=== PATIENT | female | born 1990 | race Caucasian/White ===

== ENCOUNTER 2016-04-21 22:34 | Inpatient (IN) | payer BC ==
[~2016-04-21] VITALS: Ht 165.1 cm; Wt 96.9 kg
[2016-04-21 22:49] VITALS: BP 117/72; PULSE 90; RESP 18; Ht 165.1 cm; Wt 96.9 kg
[2016-04-21] MEDS ORDERED: PREN1TAB17 PO (22:52)
[2016-04-21] MEDS ORDERED: FERR325C PO (22:53)
--- NOTE | 2016-04-22 00:53 | RADRPT ---
PROCEDURE: US OB biophysical profile. CLINICAL INDICATION: Vaginal bleeding TECHNIQUE: Multiple sonographic images of the pelvis were obtained. The images were reviewed on a PACS workstation. COMPARISON: No pertinent prior examinations were submitted for comparison. FINDINGS: There is a single viable intrauterine gestation. Cardiac activity is present with 154 beats per min heriberto. There is a vertex presentation. The placenta is fundal and grade II in appearance. There is a normal amount of amniotic fluid with an ISMA = 10.7 cm. Biophysical profile: movement 2/2 tone 2/2. breathing 2/2 ISMA 2/2 Total 09/29 IMPRESSION: Normal biophysical profile. RPTAT: HIKT . .Cosme Ling MD, MD Date Time Electronically viewed and signed by .Cosme Ling MD, on 04/22/2016 00:52 .T/
[2016-04-22] MEDS ORDERED: OXYTOCIN 30 UNITS/LR 500 ML IV PRN (02:30)
[2016-04-22] MEDS ORDERED: CARBOPROST 250 MCG INJ IM PRN (02:30)
[2016-04-22] MEDS ORDERED: CEFAZOLIN 2 GM/50 ML (PMX) 50 ML IV SCH (02:30)
[2016-04-22] MEDS ORDERED: OXYTOCIN 30 UNITS/LR 500 ML IV SCH (02:30)
[2016-04-22] MEDS ORDERED: MISOPROSTOL 200 MCG TAB PR PRN (02:30)
[2016-04-22] MEDS ORDERED: METHYLERGONOVINE 0.2 MG INJ IM PRN (02:30)
--- NOTE | 2016-04-22 03:01 | TRIAGE ---
OB Triage Datetime Report Generated by CPN: 04/22/2016 03:01 Datetime: 04/22/2016 02:22 Assessment Type: Admission Assessment Vaginal Bleeding: None Maternal Assessment Level of Consciousness: Fully Conscious DTR's/Clonus: DTRs 2+; No Clonus Headache: Denies Blurred Vision: No Respiratory Effort: Unlabored; Regular Rhythm; Equal Expansion Breath Sounds, Left: Clear and Equal Breath Sounds, Right: Clear and Equal Nausea/Vomiting: Denies RUQ Epigastric Pain: Denies Lower Extremities Edema: None Degree: None Upper Extremities Edema: None Facial Edema: None Fall Risk Assessment History of Falling: (0) No Secondary Diagnosis: (0) No Ambulatory Aid: (0) Bedrest/Nurse Assist IV Therapy: (0) No Gait: (0) Normal/Bedrest/Immobile Mental Status: (0) Oriented to Own Ability Fall Score: 0 Fall Risk Score Definition: No Risk: No action required Labor Evaluation Frequency: occasional Duration (sec)2399: 50-70 Quality: Mild Pattern: Normal: <= 5 Contractions in 10 Minutes Heart Rate FHR Baseline Rate: 135 Variability: Moderate 6-25 bpm Accelerations: 15X15 Decelerations: None Category: Category I Pain Assessment Pain Scale: 4 Pain Presence: Intermittent Pain Type: Cramping; Contraction Pain Location: Abdomen; Back Membrane Status: Intact Datetime: 04/22/2016 01:00 Labor Evaluation Frequency: irregular Monitor Mode: External Duration (sec)2399: 40-60 Quality: Mild Pattern: Normal: <= 5 Contractions in 10 Minutes Resting Tone [place]: Relaxed Heart Rate FHR Baseline Rate: 135 Monitor Mode: External US Variability: Moderate 6-25 bpm Accelerations: 15X15 Decelerations: None Category: Category I Datetime: 04/22/2016 00:30 Labor Evaluation Frequency: 2-9 Labor Evaluation Frequency: 2-6 Monitor Mode: External Duration (sec)2399: 40-70 Duration (sec)2399: 40-60 Quality: Mild Pattern: Normal: <= 5 Contractions in 10 Minutes Resting Tone [place]: Relaxed Heart Rate FHR Baseline Rate: 135 Heart Rate FHR Baseline Rate: 140 Monitor Mode: External US Variability: Moderate 6-25 bpm Accelerations: 15X15 Decelerations: None Category: Category I Datetime: 04/21/2016 23:34 Vaginal Exam Dilatation (cms): 1.5 Effacement (%): 50 Station: -2 Exam By: [email or web address] Vaginal Bleeding: Small Cervix, Consistency: Soft Cervix, Position: Midposition Datetime: 04/21/2016 23:30 Monitor Mode: External Quality: Mild Pattern: Normal: <= 5 Contractions in 10 Minutes Resting Tone [place]: Relaxed Heart Rate FHR Baseline Rate: 130 Monitor Mode: External US Variability: Moderate 6-25 bpm Accelerations: 15X15 Decelerations: None Category: Category I Datetime: 04/21/2016 23:18 Time of Arrival: 04/21/2016 22:26 EGA: 37.4 Arrived By: Wheelchair Arrived From: Home Chief Complaint: vaginal bleeding, abdominal cramping Movement: Present Contractions: Irregular Rupture of Membranes: Denies Vaginal Bleeding: Small Vaginal Discharge: Denies Recent Sexual Intercouse: Denies Abdominal Trauma: Not Applicable Patient Complaints: Cramping Time Provider Notified: 04/21/2016 23:14 Provider Notified: Eshaghian Initial Plan: CEFM, BPP Datetime: 04/21/2016 22:46 Pain Assessment Pain Scale: 4 Pain Presence: Intermittent Pain Type: Cramping Pain Location: Abdomen Datetime: 04/21/2016 22:41 Assessment Type: Triage Maternal Assessment Level of Consciousness: Fully Conscious DTR's/Clonus: DTRs 2+; No Clonus Headache: Denies Blurred Vision: No Respiratory Effort: Unlabored; Regular Rhythm; Equal Expansion Breath Sounds, Left: Clear and Equal Breath Sounds, Right: Clear and Equal Nausea/Vomiting: Denies RUQ Epigastric Pain: Denies Lower Extremities Edema: None Degree: None Upper Extremities Edema: None Degree: None Facial Edema: None Fall Risk Assessment History of Falling: (0) No Secondary Diagnosis: (0) No Ambulatory Aid: (0) Bedrest/Nurse Assist IV Therapy: (0) No Gait: (0) Normal/Bedrest/Immobile Mental Status: (0) Oriented to Own Ability Fall Score: 0 Fall Risk Score Definition: No Risk: No action required
[2016-04-22 03:04] LABS: ADD SCAN DIFF NO
[2016-04-22 03:06] LABS: BASOPHILS % 0.4 % (0.0-2.0); EOSINOPHILS # 0.1 10^3/ul (0.0-0.5); EOSINOPHILS % 0.8 % (0.0-7.0); HEMATOCRIT 31.7 % (37.0-47.0); HEMOGLOBIN 10.1 g/dl (12.0-16.0); LYMPHOCYTES # 1.9 10^3/ul (0.8-2.9); MEAN CORPUSCULAR HEMOGLOBIN 27.4 pg (29.0-33.0); MEAN CORPUSCULAR HGB CONC 31.9 g/dl (32.0-37.0); MEAN CORPUSCULAR VOLUME 85.9 fl (82.0-101.0); MEAN PLATELET VOLUME 10.7 fl (7.4-10.4); MONOCYTE # 0.5 10^3/ul (0.3-0.9); MONOCYTES % 6.6 % (0.0-11.0); NEUTROPHIL # 5.1 10^3/ul (1.6-7.5); NEUTROPHILS % 65.9 % (39.0-77.0); PLATELET COUNT 264 10^3/UL (140-415); RED BLOOD COUNT 3.69 10^6/ul (4.20-5.40); RED CELL DISTRIBUTION WIDTH 13.9 % (11.5-14.5); WHITE BLOOD COUNT 7.7 10^3/ul (4.8-10.8)
[2016-04-22 03:16] LABS: INR 0.99; PROTIME 13.1 Sec (12.2-14.2)
[2016-04-22] MEDS: LACTATED RINGER'S 1,000 ML IV SCH ×2 (03:17→10:25)
[2016-04-22 05:29] LABS: BARBITURATES Negative (NEGATIVE); BENZODIAZEPINES Negative (NEGATIVE)
[2016-04-22 05:45] LABS: CANNABINOIDS Negative (NEGATIVE); COCAINE Negative (NEGATIVE); OPIATES Negative (NEGATIVE)
[2016-04-22] MEDS ORDERED: KETOROLAC 30 MG INJ ONE (12:41)
[2016-04-22] MEDS ORDERED: morphine SULFATE/PF (10 MG/10 ML) INJ ONE (12:41)
[2016-04-22] MEDS ORDERED: ONDANSETRON 4 MG INJ ONE (12:41)
--- NOTE | 2016-04-23 07:22 | HP ---
DATE OF ADMISSION: 04/22/2016 HISTORY OF PRESENT ILLNESS: Ms. Daylin Cuellar is a 25-year-old, 3, para 1, EDC 05/08/2016, i ntrauterine at 37 weeks and 5 days gestational age, presented to the triage last nigh t for contractions. She was started on IV hydration. Currently, her contractions have resolved and there is currently no cervical change. The patient denies any current vaginal bleeding or discharg e. Her care took place at [facility]. PAST MEDICAL HISTORY: None. MEDICATIONS: vitamins. PAST SURGICAL HISTORY: x1 . OBSTETRIC HISTORY: x1 previous . GYNECOLOGIC HISTORY: 12, regular, 3 to 4 days. Denies any sexually transmitted diseases. Sexually active with 1 partner. SOCIAL HISTORY: Positive for marijuana; however, patient denies any smoking or alcohol. FAMILY HISTORY: None. PHYSICAL EXAMINATION: HEENT: Within normal. LUNGS: CTA bilateral. CARDIOVASCULAR: S1, S2, regular rhythm. ABDOMEN: Gravid, nontender. EXTREMITIES: Negative edema. No calf tenderness. PELVIC: Vaginal exam 150, -2. No vaginal discharge/bleeding. heart tracing category 1. Jason ometer no contractions. ASSESSMENT: A 25-year-old, 3, para 1, intrauterine at 37 weeks and 4 days g estational age. No cervical change, not in labor, undelivered. PLAN: Discharge home today with strict labor precautions and kick count. The patient is sche duled for an elective repeat delivery on 05/01/2016. Dictated By: JACKLYN FLORES/YOLY Conf#: [id number] DID#: [id number]
== END 2016-04-22 12:49 | disposition home or self-care (01) | DRG 780 ==
LOC: OBT 22:34 → L-D 22:37 → OBT 04-22 01:13
PROVIDERS: ADMIT Obstetrics & Gynecology; ATTEND Obstetrics & Gynecology
DX: O47.1 False labor at or after 37 completed weeks of gestation (principal); Z3A.37 37 weeks gestation of pregnancy
CPT/HCPCS: 76818; 80307; 85025; 85610; 85730; 86592; 86850; 86900; 86901; G0463; J0690; J1885; J2274; J2405; J2590; J7120

== ENCOUNTER 2016-04-24 11:05 | Outpatient (CLI) | payer BC ==
[~2016-04-24] VITALS: Ht 165.1 cm; Wt 96.8 kg
[~2016-04-24 11:05] MED LIST: FERR325C PO; PREN1TAB17 PO
[2016-04-24 11:25] VITALS: Ht 165.1 cm; Wt 96.8 kg
[2016-04-24 11:31] VITALS: BP 116/75; PULSE 104; RESP 18
[2016-04-24] MEDS ORDERED: ACETAMINOPHEN 500 MG TAB PO STA (12:13)
[2016-04-24] MEDS ORDERED: PROCHLORPERAZINE 10 MG TAB PO ONE (12:30)
[2016-04-24 12:32] LABS: POTASSIUM 4.2 mmol/L (3.5-5.1)
[2016-04-24 12:34] LABS: CREATININE 0.48 mg/dl (0.44-1.00)
[2016-04-24 12:35] LABS: ALBUMIN/GLOBULIN RATIO 0.93; CALCIUM 8.4 mg/dl (8.4-10.2); TOTAL PROTEIN 6.2 g/dl (6.1-8.1)
--- NOTE | 2016-04-24 12:42 | RADRPT ---
PROCEDURE: OB ultrasound for biophysical profile CLINICAL INDICATION: Hypertension TECHNIQUE: Multiple sonographic images of the pelvis were obtained. Transabdominal views of the g ravid uterus are available for review. The images were reviewed on a PACS workstation. COMPARISON: None FINDINGS: breathing movement = 2/2 tone = 2/2 motion = 2/2 ISMA = 2/2 ISMA = 13.3 cm Single live intrauterine with cardiac activity of 168 bpm. position is breech . The placenta is fundal. IMPRESSION: 1. Single live intrauterine gestation. 2. Biophysical profile = 8/8. 3. ISMA = 13.3 cm. RPTAT: HH .Edna Garsia MD, MD Date Time Electronically viewed and signed by .Edna Garsia MD, on 04/24/2016 12:42 .G/
--- NOTE | 2016-04-24 13:23 | HP ---
Date/Time of Note Date/Time of Note DATE: 04/24/16 TIME: 13:14 OB - History Hx of Present Free Text/Dictation OB Triage Pt is a 25yo at 38+0 with hx of C/S x1 presenting from clinic 2/2 elevated BP 152/92. Pt states her BPs have been elevated, although not as high as today, on several visits. She also c/o a severe GARZA which is not new. She has had similar headaches throughout her life and her . She has been taking 3 Extra Strength Tylenol without relief. Last took meds yesterday. Denies photophobia, phonophobia, visual changes, RUQ pain, UCs, LOF or VB. Things her mucous plug is slowly coming out. Reports normal FM. PROCEDURE: OB ultrasound for biophysical profile CLINICAL INDICATION: Hypertension TECHNIQUE: Multiple sonographic images of the pelvis were obtained. Transabdominal views of the gravid uterus are available for review. The images were reviewed on a PACS workstation. COMPARISON: None FINDINGS: breathing movement = 2/2 tone = 2/2 motion = 2/2 ISMA = 2/2 ISMA = 13.3 cm Single live intrauterine with cardiac activity of 168 bpm. position is breech. The placenta is fundal. IMPRESSION: 1. Single live intrauterine gestation. 2. Biophysical profile = 8/8. 3. ISMA = 13.3 cm. Estimated Due Date: May 08, 2016 Care: Good Care OB Admission Exam Vital Signs Vital Signs Vital Signs Date Time Temp Pulse Resp B/P Pulse Ox O2 Delivery O2 Flow Rate FiO2 04/24/16 11:31 98.0 104 18 116/75 Room Air 111/74 Physical Exam Extremities: Edema (trace bilateral LE ) Reflexes: Normal Heart Rate: 130's Accelerations: Accelerations Present Decelerations: No Decelerations Varibility: Moderate Contractions on Admission: None Last 72 hours Lab Results CBC & BMP 04/24/16 12:00 Liver Function Test 04/24/16 12:00 Alanine Aminotransferase (ALT/SGPT) 20 Albumin 3.0 L Alkaline Phosphatase 148 H Aspartate Amino Transf (AST/SGOT) 13 L Direct Bilirubin 0.00 Total Protein 6.2 OB Assessment/Plan Other Assessment: Elevated BPs in clinic at term w/o e/o PreEclampsia Headache Reassuring FWB Other plan: Pt with normal BPs in triage, normal labs and no proteinuria GARZA resolved with Tylenol 1000mg and Compazine 10mg IM Recommend pt complete a 24hr urine collection, return in 2d to triage with urine and for repeat BP check PreE precautions reviewed as well as ROM and FKC Questions answered to patient's satisfaction ENRIKE MARTINEZ MD Apr 24, 2016 13:23
[2016-04-24 13:24] LABS: ADD UMIC YES; URINE BILIRUBIN (Dip) NEGATIVE (NEGATIVE); URINE BLOOD (Dip) 3+ (NEGATIVE); URINE COLOR LT. YELLOW (YELLOW); URINE GLUCOSE (Dip) NEGATIVE (NEGATIVE); URINE KETONES (Dip) NEGATIVE (NEGATIVE); URINE LEUKOCYTE ESTERASE (Dip) 2+ (NEGATIVE); URINE NITRITE (Dip) NEGATIVE (NEGATIVE); URINE TOTAL PROTEIN (Dip) NEGATIVE (NEGATIVE); URINE UROBILINOGEN (Dip) 4.0 E.U./dL (0.1-1.0)
[2016-04-24 13:34] LABS: BACTERIA,URINE MODERATE
--- NOTE | 2016-04-24 13:56 | TRIAGE ---
OB Triage Datetime Report Generated by CPN: 04/24/2016 13:55 Datetime: 04/24/2016 13:51 Time of Arrival: 04/24/2016 11:38 EGA: 38.0 Arrived By: Ambulatory Arrived From: Office Chief Complaint: FROM CLINIC ELEV BP Movement: Present Rupture of Membranes: Denies Vaginal Discharge: Denies Recent Sexual Intercouse: Denies Abdominal Trauma: Not Applicable Patient Complaints: Other Initial Plan: EFM Datetime: 04/24/2016 13:42 Comments: DR MARTINEZ UPDATED THE LAB AND U/S RESULT.PT DC HOME ON 24 HR URINE COLLECTION AND RETU RN TO TRIAGE WITH THAT Datetime: 04/24/2016 13:38 Labor Evaluation Frequency: NONE Monitor Mode: External Pattern: Normal: <= 5 Contractions in 10 Minutes Resting Tone [place] Station: Relaxed Heart Rate FHR Baseline Rate: 130 Monitor Mode: External US FHR Baseline Changes: No Baseline Change Variability: Moderate 6-25 bpm Accelerations: 15X15 Decelerations: None Category: Category I Pain Assessment Comments: PT SAYS SHE FEELS BETTER AFTER TH E MEDICATIONS Datetime: 04/24/2016 12:45 Stage of : OB Triage Labor Evaluation Frequency: NONE Monitor Mode: External Pattern: Normal: <= 5 Contractions in 10 Minutes Heart Rate FHR Baseline Rate: 135 Monitor Mode: External US FHR Baseline Changes: No Baseline Change Variability: Moderate 6-25 bpm Accelerations: 15X15 Decelerations: None Membrane Status: Intact Datetime: 04/24/2016 12:11 Comments: CBC UA SENT TO LAB Datetime: 04/24/2016 12:00 Labor Evaluation Frequency: NONE Monitor Mode: External Pattern: Normal: <= 5 Contractions in 10 Minutes Heart Rate FHR Baseline Rate: 135 Monitor Mode: External US FHR Baseline Changes: No Baseline Change Variability: Moderate 6-25 bpm Accelerations: 15X15 Decelerations: None Category: Category I Membrane Status: Intact Datetime: 04/24/2016 11:33 Labor Evaluation Frequency: NONE Monitor Mode: External Pattern: Normal: <= 5 Contractions in 10 Minutes Resting Tone [place] Station: Relaxed Heart Rate FHR Baseline Rate: 140 Monitor Mode: External US FHR Baseline Changes: No Baseline Change Variability: Moderate 6-25 bpm Accelerations: 15X15 Decelerations: None Category: Category I Pain Presence: Constant Pain Location: Head Datetime: 04/22/2016 12:26 Pattern: Normal: <= 5 Contractions in 10 Minutes Resting Tone [place] Station: Relaxed Contraction Comments: no uc Heart Rate FHR Baseline Rate: 135 Monitor Mode: External US Variability: Moderate 6-25 bpm Accelerations: 15X15 Decelerations: None Category: Category I Pain Presence: None/Denies Pain Type: N/A Datetime: 04/22/2016 12:19 Vaginal Exam Dilatation (cms): 1.0 Effacement (%): 50 Station: -3 Exam By: Drthong Datetime: 04/22/2016 12:01 Labor Evaluation Frequency: OCC Monitor Mode: External Duration (sec)2399: 50-70 Quality: Mild Pattern: Normal: <= 5 Contractions in 10 Minutes Resting Tone [place] Station: Relaxed Heart Rate FHR Baseline Rate: 145 Monitor Mode: External US Variability: Moderate 6-25 bpm Accelerations: 15X15 Category: Category I Pain Assessment Pain Scale: 4 Pain Presence: Intermittent Pain Type: Contraction Pain Location: Abdomen Pain Goal: 3 Datetime: 04/22/2016 11:01 Labor Evaluation Frequency: OCC Monitor Mode: External Duration (sec)2399: 60 Quality: Mild Pattern: Normal: <= 5 Contractions in 10 Minutes Resting Tone [place] Station: Relaxed Heart Rate FHR Baseline Rate: 135 Monitor Mode: External US Variability: Moderate 6-25 bpm Accelerations: 15X15 Decelerations: None Category: Category I Pain Assessment Pain Scale: 4 Pain Presence: Intermittent Pain Type: Contraction Pain Location: Abdomen Pain Goal: 3 Datetime: 04/22/2016 10:01 Labor Evaluation Frequency: OCC Monitor Mode: External Duration (sec)2399: 50 Quality: Mild Pattern: Normal: <= 5 Contractions in 10 Minutes Resting Tone [place] Station: Relaxed Heart Rate FHR Baseline Rate: 125 Monitor Mode: External US Variability: Moderate 6-25 bpm Accelerations: 15X15 Decelerations: None Category: Category I Pain Assessment Pain Scale: 4 Pain Presence: Intermittent Pain Type: Contraction Pain Location: Abdomen Pain Goal: 3 Datetime: 04/22/2016 09:01 Labor Evaluation Frequency: OCC Monitor Mode: External Duration (sec)2399: 50-60 Quality: Mild Pattern: Normal: <= 5 Contractions in 10 Minutes Resting Tone [place] Station: Relaxed Heart Rate FHR Baseline Rate: 135 Monitor Mode: External US Variability: Moderate 6-25 bpm Accelerations: 15X15 Decelerations: None Category: Category I Pain Assessment Pain Scale: 4 Pain Presence: Intermittent Pain Type: Contraction Pain Location: Abdomen Pain Goal: 3 Datetime: 04/22/2016 07:52 Labor Evaluation Frequency: 7-10 Monitor Mode: Palpation Duration (sec)2399: 60-70 Quality: Mild Pattern: Normal: <= 5 Contractions in 10 Minutes Resting Tone [place] Station: Relaxed Heart Rate FHR Baseline Rate: 135 Monitor Mode: External US Variability: Moderate 6-25 bpm Accelerations: 15X15 Decelerations: None Category: Category I Pain Assessment Pain Scale: 4 Pain Presence: Intermittent Pain Type: Contraction Pain Location: Abdomen Pain Goal: 3 Datetime: 04/22/2016 07:21 Assessment Type: Ongoing Assessment Maternal Assessment Level of Consciousness: Fully Conscious DTR's/Clonus: DTRs 2+; No Clonus Headache: Denies Blurred Vision: No Respiratory Effort: Unlabored; Regular Rhythm; Equal Expansion Breath Sounds, Left: Clear and Equal Breath Sounds, Right: Clear and Equal Nausea/Vomiting: Denies RUQ Epigastric Pain: Denies Lower Extremities Edema: None Degree: None Upper Extremities Edema: None Facial Edema: None Fall Risk Assessment History of Falling: (0) No Secondary Diagnosis: (0) No Ambulatory Aid: (0) Bedrest/Nurse Assist IV Therapy: (20) Yes Gait: (0) Normal/Bedrest/Immobile Mental Status: (0) Oriented to Own Ability Fall Score: 20 Fall Risk Score Definition: No Risk: No action required Pain Assessment Pain Scale: 4 Pain Presence: Intermittent Pain Type: Contraction Pain Location: Abdomen Pain Goal: 3 Datetime: 04/22/2016:27 Monitor Mode: External Quality: Mild Pattern: Normal: <= 5 Contractions in 10 Minutes Resting Tone [place] Station: Relaxed Heart Rate FHR Baseline Rate: 125 Monitor Mode: External US FHR Baseline Changes: No Baseline Change Variability: Moderate 6-25 bpm Accelerations: 15X15 Pain Assessment Pain Scale: 4 Pain Presence: Intermittent Pain Type: Contraction Pain Location: Abdomen Datetime: 04/22/2016 06:00 Monitor Mode: External Quality: Moderate Pattern: Normal: <= 5 Contractions in 10 Minutes Resting Tone [place] Station: Relaxed Heart Rate FHR Baseline Rate: 130 Monitor Mode: External US Variability: Moderate 6-25 bpm Accelerations: 15X15 Decelerations: None Category: Category I Pain Assessment Pain Scale: 4 Pain Presence: Intermittent Pain Type: Contraction Pain Location: Abdomen Datetime: 04/22/2016 05:00 Labor Evaluation Frequency: 3-5 Duration (sec)2399: 60-80 Quality: Mild Pattern: Normal: <= 5 Contractions in 10 Minutes Resting Tone [place] Station: Relaxed Heart Rate FHR Baseline Rate: 130 Monitor Mode: External US Variability: Moderate 6-25 bpm Accelerations: 15X15 Decelerations: None Category: Category I Pain Presence: None/Denies Pain Type: N/A Pain Assessment Comments: SLEEPING Membrane Status: Intact Datetime: 04/22/2016 04:00 Labor Evaluation Frequency: 3-4 Monitor Mode: External Duration (sec)2399: 50-80 Quality: Mild Pattern: Normal: <= 5 Contractions in 10 Minutes Resting Tone [place] Station: Relaxed Heart Rate FHR Baseline Rate: 135 Monitor Mode: External US Variability: Moderate 6-25 bpm Accelerations: 15X15 Decelerations: None Category: Category I Pain Presence: None/Denies Pain Type: N/A Pain Assessment Comments: sleeping Membrane Status: Intact Datetime: 04/22/2016 03:00 Labor Evaluation Frequency: 3-4 Monitor Mode: External Duration (sec)2399: 50-90 Quality: Mild Pattern: Normal: <= 5 Contractions in 10 Minutes Resting Tone [place] Station: Relaxed Heart Rate FHR Baseline Rate: 140 Monitor Mode: External US Variability: Moderate 6-25 bpm Accelerations: 15X15 Decelerations: None Category: Category I Pain Assessment Pain Scale: 4 Pain Presence: Intermittent Pain Type: Cramping; Contraction Pain Location: Abdomen; Back Pain Relief Measures: Comfort Measures Membrane Status: Intact Datetime: 04/22/2016 02:22 Fall Score: 0 Fall Risk Score Definition: No Risk: No action required Datetime: 04/21/2016 23:18 EGA: 37.4 Datetime: 04/21/2016 22:41 Fall Score: 0 Fall Risk Score Definition: No Risk: No action required
== END 2016-04-24 14:00 | disposition home or self-care (01) ==
LOC: OBT 11:05 → L-D 11:06 → OBT 14:00
PROVIDERS: ATTEND Obstetrics & Gynecology
DX: O26.893 Other specified pregnancy related conditions, third trimester (principal); R03.0 Elevated blood-pressure reading, without diagnosis of hypertension; R51 Headache; Z3A.38 38 weeks gestation of pregnancy
CPT/HCPCS: 36415; 76818; 80053; 81001; Z7500; Z7610; 81003; G0463

== ENCOUNTER 2016-04-26 20:08 | Inpatient (IN) | payer BC ==
[~2016-04-26] VITALS: Ht 165.1 cm; Wt 96.6 kg
[2016-04-26 20:32] VITALS: Ht 165.1 cm; Wt 96.6 kg
[2016-04-26] MEDS ORDERED: LACTATED RINGER'S 1,000 ML IV SCH (21:39)
[2016-04-26] MEDS ORDERED: LACTATED RINGER'S 1,000 ML IV PRN ×2 (21:40→22:00)
[2016-04-26] MEDS ORDERED: ACETAMINOPHEN 500 MG TAB PO STA (21:40)
[2016-04-26 21:41] VITALS: BP 137/90; PULSE 80; RESP 16
[2016-04-26 21:43] VITALS: BP 124/72; PULSE 120; RESP 17
[2016-04-26] MEDS: LACTATED RINGER'S 1,000 ML IV SCH (21:55)
[2016-04-26] MEDS ORDERED: LIDOCAINE 1% (MPF) 30 ML INJ INJ PRN ×2 (22:00)
[2016-04-26] MEDS ORDERED: METHYLERGONOVINE 0.2 MG INJ IM PRN ×2 (22:00)
[2016-04-26] MEDS ORDERED: OXYTOCIN 30 UNITS/LR 500 ML IV PRN ×2 (22:00)
[2016-04-26] MEDS ORDERED: IBUPROFEN 600 MG TAB PO PRN (22:00)
[2016-04-26] MEDS ORDERED: OXYTOCIN 30 UNITS/LR 500 ML IV SCH (22:00)
[2016-04-26] MEDS ORDERED: BUTORPHANOL 2 MG INJ IV PRN ×2 (22:00)
[2016-04-26] MEDS ORDERED: AMPICILLIN 2 GM/NS (PMX) 100 ML IV ONE (22:00)
[2016-04-26] MEDS ORDERED: MISOPROSTOL 200 MCG TAB PR PRN ×2 (22:00)
[2016-04-26] MEDS ORDERED: CARBOPROST 250 MCG INJ IM PRN ×2 (22:00)
[2016-04-26 22:09] LABS: ADD SCAN DIFF NO
[2016-04-26 22:21] LABS: BASOPHILS % 0.3 % (0.0-2.0); EOSINOPHILS # 0.1 10^3/ul (0.0-0.5); EOSINOPHILS % 0.7 % (0.0-7.0); HEMATOCRIT 30.7 % (37.0-47.0); HEMOGLOBIN 9.8 g/dl (12.0-16.0); LYMPHOCYTES # 1.6 10^3/ul (0.8-2.9); LYMPHOCYTES % 21.3 % (15.0-51.0); MEAN CORPUSCULAR HEMOGLOBIN 27.5 pg (29.0-33.0); MEAN CORPUSCULAR HGB CONC 31.9 g/dl (32.0-37.0); MEAN PLATELET VOLUME 10.9 fl (7.4-10.4); MONOCYTE # 0.5 10^3/ul (0.3-0.9); MONOCYTES % 6.3 % (0.0-11.0); NEUTROPHIL # 5.2 10^3/ul (1.6-7.5); NEUTROPHILS % 69.9 % (39.0-77.0); PLATELET COUNT 293 10^3/UL (140-415); RED BLOOD COUNT 3.57 10^6/ul (4.20-5.40); RED CELL DISTRIBUTION WIDTH 14.1 % (11.5-14.5); WHITE BLOOD COUNT 7.5 10^3/ul (4.8-10.8)
[2016-04-26 22:31] LABS: INR 0.91; PROTIME 12.2 Sec (12.2-14.2)
[2016-04-26] MEDS ORDERED: CITRIC ACID/NA CITRATE 30 ML CUP ONE (22:37)
[2016-04-26] MEDS ORDERED: morphine SULFATE/PF (10 MG/10 ML) INJ ONE (22:48)
[2016-04-26] MEDS ORDERED: FENTAnyl 50 MCG/ML VIAL ONE (22:49)
[2016-04-26] MEDS ORDERED: CEFAZOLIN 2 GM/50 ML (PMX) 50 ML IVPB ONE (22:53)
[2016-04-26] MEDS ORDERED: FAMOTIDINE 20 MG INJ IV ONE (23:00)
[2016-04-26] MEDS ORDERED: CITRIC ACID/NA CITRATE 30 ML CUP PO ONE (23:00)
[2016-04-26] MEDS ORDERED: PHENYLephrine (100 MCG/ML) 5ML SYG ONE (23:20)
[2016-04-26] MEDS ORDERED: EPHEDrine SULFATE 50 MG/5 ML SYG ONE (23:21)
[2016-04-26] MEDS ORDERED: KETOROLAC 30 MG INJ IV PRN (23:30)
[2016-04-26] MEDS ORDERED: ZOLPIDEM 5 MG TAB PO PRN (23:30)
[2016-04-26] MEDS ORDERED: DIPHENHYDRAMINE 50 MG INJ IV PRN (23:30)
[2016-04-26] MEDS ORDERED: HYDROmorphONE 1 MG/ML SYG IV PRN ×2 (23:30)
[2016-04-26] MEDS ORDERED: ONDANSETRON 4 MG INJ IV PRN (23:30)
[2016-04-26] MEDS ORDERED: NALOXONE (0.4 MG/ML) INJ IV PRN (23:30)
[2016-04-27] VITALS (8 sets, daily range): BP systolic 106–121; BP diastolic 62–74; PULSE 68–112; RESP 18–20
[2016-04-27] MEDS ORDERED: DEXAMETHASONE 4 MG/ML 1 ML INJ ONE (00:23)
[2016-04-27] MEDS: OXYTOCIN 30 UNITS/LR 500 ML IV SCH ×2 (00:53→04:43)
--- NOTE | 2016-04-27 01:29 | DELSUM ---
Delivery Summary A-C Datetime Report Generated by CPN: 04/27/2016 01:28 DELIVERY PERSONNEL Ward Assistant: Long, Na MATERNAL INFORMATION Delivery Anesthesia: Spinal Medications in Delivery: SEE ANESTHESIA Estimated Blood Loss (ml): 700 Placenta Cultured: No Maternal Complications: None RN Comments: NOTE LARGE AMOUNT OF UTERINE SCAR TISSUE LABOR SUMMARY EDC: 05/08/2016 00:00 No. Babies in Womb: 1 Attempted: No Labor Anesthesia: Intrathecal LABOR INFORMATION Reason for Induction: Not Applicable Onset of Labor: 04/21/2016 12:41 Oxytocin: N/A Group B Beta Strep: Negative Group B Beta Strep: Not Done Antibiotics # of Doses: 1 Antibiotics Time of Last Dose: 04/26/2016 23:15 Steroids Given: None Reason Steroids Not Administered: Not Applicable MEMBRANES Membranes Rupture Method: Spontaneous Rupture of Membranes: 04/26/2016 20:00 Length of Rupture (hr): 3.83 Amniotic Fluid Color: Clear Amniotic Fluid Amount: Large Amniotic Fluid Odor: None STAGES OF LABOR Stage 3 hr: 0 Stage 3 min: 1 Total Time in Labor hr: 131 Total Time in Labor min: 10 CSECTION DELIVERY Primary Indication: Repeat Elective Secondary Indication: Repeat Elective CSection Urgency: Non Elective CSection Incidence: Repeat Labor: No Labor Elective: Elective CSection Incision: Lower Uterine Transverse BABY A INFORMATION Delivery Date/Time: 04/26/2016 23:50 Method of Delivery: Born in Route : No : N/A Forceps: N/A Vacuum Extraction: N/A Shoulder Dystocia : N/A SHOULDER DYSTOCIA BABY A Delivery Date/Time: 04/26/2016 23:50 PRESENTATION/POSITION BABY A Presentation: Cephalic Cephalic Presentation: Vertex Vertex Position: Left Occipital Transverse Breech Presentation: N/A PLACENTA INFORMATION BABY A Placenta Delivery Time : 04/26/2016 23:51 Placenta Method of Delivery: Manual Removal Placenta Status: Delivered SCORES BABY A Heart Rate 1 min: >100 bpm Resp Effort 1 min: Good Cry Reflex Irritability 1 min: Cough/Sneeze/Pulls Away Muscle Tone 1 min: Active Motion Color 1 min: Body Cross Keys, Extremit Blue Resuscitation Effort 1 min: Tactile Stimulation SCORE 1 MIN: 9 Heart Rate 5 min: >100 bpm Resp Effort 5 min: Good Cry Reflex Irritability 5 min: Cough/Sneeze/Pulls Away Muscle Tone 5 min: Active Motion Color 5 min: Body Cross Keys, Extremit Blue Resuscitation Effort 5 min: Tactile Stimulation SCORE 5 MIN: 9 INFORMATION BABY A Gestational Age at Delivery: 38.2 Gestational Status: Early Term- 37- 38.6 Weeks Infant Outcome : Liveborn Condition : Stable Infant Sex: Female IDENTIFICATION/MEDS BABY A ID Band Number: [id number] ID Band Location: Right Leg; Left Arm Sensor Applied: Yes Sensor Number: [id number] Sensor Location : Cord Clamp Vitamin K Given : Not Given Erythromycin Given: Not Given WEIGHT/LENGTH BABY A Infant Birthweight (gm): 3380 Infant Weight (lb): 7 Infant Weight (oz): 7 Infant Length (in): 19.50 Length (cm): 49.53 CORD INFORMATION BABY A No. Cord Vessels: 3 Nuchal Cord : N/A Cord Blood Taken: Yes Suction: Mouth; Nose ASSESSMENT BABY A Infant Complications: None Physical Findings at Delivery: Within Normal Limits Respirations: Appears Normal [employer] Education Director/ALS Called : No Care By: RT DAVE AND AMOL GUILLORY Transferred To: Remains with Mother
[2016-04-27] MEDS ORDERED: AMPICILLIN 1 GM/NS (PMX) 50 ML IV SCH (02:00)
[2016-04-27] MEDS: LACTATED RINGER'S 1,000 ML IV SCH ×6 (02:16→16:37)
[2016-04-27] MEDS ORDERED: MISOPROSTOL 200 MCG TAB PR PRN (02:30)
[2016-04-27] MEDS ORDERED: CARBOPROST 250 MCG INJ IM PRN (02:30)
[2016-04-27] MEDS ORDERED: LANOLIN 7 GM TUBE TOP PRN (02:30)
[2016-04-27] MEDS ORDERED: METHYLERGONOVINE 0.2 MG INJ IM PRN (02:30)
[2016-04-27] MEDS ORDERED: OXYTOCIN 30 UNITS/LR 500 ML IV PRN ×2 (02:30→04:00)
[2016-04-27] MEDS ORDERED: OXYCODONE/ACETAMINOPHEN (5/325) TAB PO PRN (02:30)
--- NOTE | 2016-04-27 03:16 | HP ---
Date/Time of Note Date/Time of Note DATE: 04/27/16 TIME: 03:05 OB - History Hx of Present Free Text/Dictation 25 y.o. A1 with an IUP at 38w 2d with a previous who came in with ruptured membranes and in labor. Estimated Due Date: May 08, 2016 : 3 Para: 1 Spontaneous : 1 Care: Good Care Ultrasounds: Normal mid trimester US Obstetrical Complications: None Medical Complications: None Other Concerns: Previous , scheduled for a repeat . Past Family/Social History * Past Medical, Surgical, Family and Obstetric Histories reviewed from chart. Blood Type: O+ Rubella: not immune RPR/VDRL: Negative GBS Status: Unknown HBsAG: Negative OB Admission Exam Vital Signs Vital Signs Vital Signs Date Time Temp Pulse Resp B/P Pulse Ox O2 Delivery O2 Flow Rate FiO2 04/26/16 21:43 98.4 120 17 124/72 Room Air 04/26/16 21:41 99 Physical Exam HEENT: WNL Heart: Rhythm Normal Lungs: Clear Abdomen: WNL Extremities: Edema (1+) Reflexes: Normal Cervical Dilatation: 1cm Effacement: 50% Station: Ballotable Membranes: Ruptured Amniotic Fluid: Clear Heart Rate: 140's Accelerations: Accelerations Present Decelerations: No Decelerations Varibility: Moderate Contractions on Admission: 6-10 Minutes Apart Last 72 hours Lab Results CBC & BMP 04/26/16 21:30 OB Assessment/Plan Reason for admission: section, rupture of membranes Plan: Section ERIKA MAN MD Apr 27, 2016 03:16
[2016-04-27] MEDS ORDERED: KETOROLAC 30 MG INJ IV PRN (04:00)
[2016-04-27] MEDS ORDERED: ZOLPIDEM 5 MG TAB PO PRN (04:00)
[2016-04-27] MEDS ORDERED: ONDANSETRON 4 MG INJ IV PRN (04:00)
[2016-04-27] MEDS ORDERED: HYDROmorphONE 1 MG/ML SYG IV PRN ×2 (04:00)
[2016-04-27] MEDS ORDERED: DIPHENHYDRAMINE 50 MG INJ IV PRN (04:00)
[2016-04-27] MEDS ORDERED: NALOXONE (0.4 MG/ML) INJ IV PRN (04:00)
--- NOTE | 2016-04-27 04:23 | OPR ---
DATE OF OPERATION: 04/26/2016 PREOPERATIVE DIAGNOSES: 1. Intrauterine at 38 weeks. 2. Previous section x1. 3. Spontaneous rupture of membranes. POSTOPERATIVE DIAGNOSES: 1. Intrauterine at 38 weeks. 2. Previous section x1. 3. Spontaneous rupture of membranes. 4. Status post delivery of a viable female weighing 3380 g or 7 pounds 7 ounces with scores of 9 and 9, transverse lie, back down presentation. 5. Dense adhesion between the anterior uterus and the anterior abdominal wall. PROCEDURES: 1. Repeat low transverse section. 2. Lysis of adhesions. 3. Version of baby to effect delivery to vertex. SURGEON: Gonzales Reyes MD AIRCRAFT LOG CLERK: Stiven Carrillo MD ANESTHESIOLOGIST: Nhan Aceves MD ESTIMATED BLOOD LOSS: 700 mL FINDINGS: The adhesions had to be waded through prior to being able to deliver the baby which took a little bit of time and some difficulty verting the baby, as there was no fluid in the uterus, but eventually was able to get it head down and deliver the baby. PATHOLOGY: None. DESCRIPTION OF PROCEDURE: The patient was brought to the operating room, placed on the operating table, and a spinal block was administered. Jj catheter was placed, and she was prepped and draped in the usual sterile fashion. A Pfannenstiel incision was made in an elliptical manner removing the old scar, and the knife was used down to what was felt to be the level of the fascia. There were no anterior abdominal muscles noted, so the anatomy was a little confusing. There was a lot of scar tissue just in the superficial layers as well, so identifying anatomy was challenging at best through the whole procedure. Then we were able to identify the fascia laterally and work way back to midline to identify those areas and extend the incision as much as possible anterior, inferior, and superiorly. It was apparent there was a dense adhesion between the anterior abdominal wall and the anterior fundus. Eventually we were able to get in laterally, and the adhesion had to be taken down prior to being able to deliver the baby. Once the adhesion was released, it was rather broad, about fist sized area. I then could identify the bladder which also had a lot of adhesions. The area where the adhesion was is exactly where the incision was made using a knife, entering the uterus using a Candace clamp, and then stretching and incision opened a little bit further. I had to use bandage scissors the rest of the way. The lower uterine segment was not very thin. It was then noted the baby was transverse lie back down with the head on the left. It was not possible to vert the baby initially to vertex after several tries and tried pushing the head up into the fundus and delivering the bottom, but the legs were straight up, so it was very difficult to try and get the legs down as there was no fluid around the baby. I pushed the baby back to transverse and then tried to vert the baby again to vertex, and this time the baby was able to be delivered. The head was delivered. The mouth and nares were bulb suctioned, and the rest of the baby was then delivered. Cord was doubly clamped and cut, and the baby was then brought to the warmer where the respiratory team was in attendance. Uterus was externalized, wrapped in a moist lap, and a dry lap was used to clean the interior of the uterus. The incision was closed in 2 layers; the initial transverse incision and then having to release the adhesions, a superficial layer of anterior abdominal wall had been irregularly released, so that had to be brought back together to close the layers of the uterus properly. After excellent hemostasis was obtained and the bladder was well away from everything , I then irrigated the belly, replaced the uterus back in the abdomen, had to make another stitch on the right side for hemostasis, and other than that, everything was dry. I then closed the anterior peritoneum using 2-0 chromic in a running stitch, brought the rectus muscles together with a running stitch. I examined the underbelly of the fascia above and below, and those were all dry. I then closed the fascial layer with 0 Vicryl suture in a running stitch from each lateral edge to midline with overlap at the midline. The subcutaneous layer was irrigated well, cautery applied where needed for hemostasis, and then a running stitch of 2-0 chromic was used to bring the tissue together. Then the skin was closed with 3-0 Monocryl in a subcuticular stitch with excellent tissue approximation and hemostasis. The patient tolerated the procedure well. A big pressure dressing was applied. The patient was transferred to the recovery room in excellent condition. Dictated By: GONZALES LEE/YOLY Conf#: [id number] [facility]#: [id number] MTDD
[2016-04-27] MEDS: IBUPROFEN 800 MG TAB PO SCH ×3 (06:00→22:00)
[2016-04-28] MEDS: OXYCODONE/ACETAMINOPHEN (5/325) TAB PO PRN ×3 (02:50→14:32)
[2016-04-28 04:10] VITALS: BP 110/63; PULSE 70; PULSE 92; RESP 18
[2016-04-28] MEDS: IBUPROFEN 800 MG TAB PO SCH ×3 (05:30→19:55)
--- NOTE | 2016-04-28 07:14 | QN ---
Documentation Comment attending note POD 2 patient seen and evaluated no complaints positive voiding tolerating diet vs stable afebrile ab soft nt uterine fundus below umbillicus c/d/i no distention extremity no edema no calf tenderness a/ s/p cd PoD 2 stable p/encourage ambulation JACKLYN JHAVERI MD Apr 28, 2016 07:13
[2016-04-28 08:00] VITALS: BP 109/53; PULSE 63; RESP 18
[2016-04-28 08:21] LABS: ADD SCAN DIFF NO
[2016-04-28 08:30] LABS: BASOPHILS % 0.2 % (0.0-2.0); EOSINOPHILS % 0.3 % (0.0-7.0); HEMATOCRIT 25.2 % (37.0-47.0); HEMOGLOBIN 7.9 g/dl (12.0-16.0); LYMPHOCYTES # 2.1 10^3/ul (0.8-2.9); LYMPHOCYTES % 18.7 % (15.0-51.0); MEAN CORPUSCULAR HEMOGLOBIN 27.1 pg (29.0-33.0); MEAN CORPUSCULAR HGB CONC 31.3 g/dl (32.0-37.0); MEAN CORPUSCULAR VOLUME 86.6 fl (82.0-101.0); MEAN PLATELET VOLUME 10.9 fl (7.4-10.4); MONOCYTE # 0.6 10^3/ul (0.3-0.9); MONOCYTES % 5.8 % (0.0-11.0); NEUTROPHIL # 8.2 10^3/ul (1.6-7.5); NEUTROPHILS % 74.1 % (39.0-77.0); PLATELET COUNT 238 10^3/UL (140-415); RED BLOOD COUNT 2.91 10^6/ul (4.20-5.40); RED CELL DISTRIBUTION WIDTH 14.3 % (11.5-14.5); WHITE BLOOD COUNT 11.1 10^3/ul (4.8-10.8)
[2016-04-28] MEDS ORDERED: INFLUENZA VIRUS VACCINE 0.5 ML (DISPENSING) IM* ONE (09:00)
[2016-04-28] MEDS: FERROUS SULFATE (EC) 325 MG TAB PO SCH ×2 (12:04→21:00)
[2016-04-28 15:59] VITALS: BP 110/60; PULSE 60; RESP 18
[2016-04-28 20:00] VITALS: BP 116/80; PULSE 78; RESP 20
[2016-04-29 04:15] VITALS: BP 96/60; PULSE 94; RESP 19
[2016-04-29] MEDS: IBUPROFEN 800 MG TAB PO SCH ×2 (05:47→14:11)
[2016-04-29 08:00] VITALS: BP 102/70; PULSE 86; RESP 18
[2016-04-29] MEDS: FERROUS SULFATE (EC) 325 MG TAB PO SCH (09:31)
--- NOTE | 2016-04-29 12:58 | PD.PPDC ---
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
--- NOTE | 2016-04-29 13:33 | DS ---
DATE OF ADMISSION: 04/26/2016 DATE OF DISCHARGE: 04/29/2016 PRIMARY DIAGNOSES: 1. Intrauterine at 38 weeks. 2. Previous section x1. 3. Spontaneous rupture of membrane. PROCEDURE: Repeat low transverse with lysis of adhesions. CONDITION ON DISCHARGE: Stable. ACTIVITY: None per vagina, no heavy lifting x6 weeks. DIET: Regular. MEDICATIONS ON DISCHARGE: 1. Motrin. 2. Percocet. 3. Iron. 4. Colace. DISCHARGE SUMMARY: Ms. Daylin Cuellar is a 25-year-old female status post repeat delivery on 04/26/2016. She had a viable female, weight 3380 grams, 9 and 9 respectively at 1 and 5 debbie lawson. She had uneventful postop day 1, 2, and 3. Her incision is clean, dry, and intact. She is am bulating, tolerating diet, positive flatulence, positive bowel movement. She will follow up in the office this Wednesday to remove her marcia. Dictated By: JACKLYN FLORES/YOLY Conf#: [id number] DID#: [id number]
[2016-04-29] MEDS ORDERED: MEASLES,MUMPS,RUBELLA VACCINE INJ SC* ONE (14:30)
[2016-04-30] MEDS ORDERED: DIPHTH/TET/ACEL PERTUSS (ADULT) 0.5 ML VIAL IM* ONE (09:00)
== END 2016-04-29 16:04 | disposition home or self-care (01) | DRG 766 ==
LOC: OBT 20:08 → L-D 20:09 → OBT 20:44 → L-D 20:44 → PP1 04-27 03:40
PROVIDERS: ADMIT Obstetrics & Gynecology; ATTEND Obstetrics & Gynecology
PROC: 10D00Z1 Extraction of Products of Conception, Low, Open Approach (ICD-10-PCS; principal; 2016-04-26 21:30)
PROC: 3E0234Z Introduction of Serum, Toxoid and Vaccine into Muscle, Percutaneous Approach (ICD-10-PCS; 2016-04-28)
PROC: 3E0234Z Introduction of Serum, Toxoid and Vaccine into Muscle, Percutaneous Approach (ICD-10-PCS; 2016-04-29)
DX: O34.211 Maternal care for low transverse scar from previous cesarean delivery (principal); O32.2XX0 Maternal care for transverse and oblique lie, not applicable or unspecified; Z3A.38 38 weeks gestation of pregnancy; Z37.0 Single live birth; Z23 Encounter for immunization
CPT/HCPCS: 85025; 85610; 85730; 86592; 86900; 86901; 87340; 90686; 99464; G0463; J0690; J1100; J1170; J1200; J1885; J2274; J2370; J2405; J2590; J3010; J7120